=== PATIENT | female | born 1995 | race Caucasian/White ===

== ENCOUNTER → 2016-11-17 | Outpatient (CLI) | payer OTHER ==
--- NOTE | 2016-11-17 11:00 | XR ---
EXAMINATION TYPE: XR foot complete LT DATE OF EXAM: 11/17/2016 10:52 AM COMPARISON: NONE HISTORY: Pain TECHNIQUE: Three views are submitted. FINDINGS: The osseous structures are intact and the joint spaces are preserved. There is no acute fracture or dislocation. IMPRESSION: 1. No acute fracture or dislocation. If symptoms persist, follow-up exam in 7 to 10 days could be ob tained.
== END | disposition home or self-care (01) ==
LOC: RADXRMAIN 10:37
PROVIDERS: ATTEND Emergency Medicine
DX: S90.32XA Contusion of left foot, initial encounter (principal)

== ENCOUNTER 2017-03-18 23:24 | Emergency (ER) | payer BC, OTHER ==
[2017-03-18 23:42] VITALS: BP 122/74; TEMP 98
[2017-03-19] MEDS ORDERED: KETOROLAC 30 MG/ML 1 ML VIAL IM STA (00:36)
--- NOTE | 2017-03-19 00:39 | ED ---
General Adult HPI - General Chief complaint: Back Pain/Injury Stated complaint: back pain Time Seen by Provider: 03/19/17 00:19 Source: patient, RN notes reviewed Mode of arrival: ambulatory Limitations: no limitations - History of Present Illness Initial comments: Patient is a 21-year-old female since emergency room for evaluation of right- sided neck and upper back pain. Patient states she's had in neck pain for the past few months. Patient states the pain is on the right side of her neck and radiates into her shoulder. Patient states over the past few days been radiating into her right upper back. Patient states she feels tingling on the right side of her neck. Patient denies any worsening pain with movement of her neck or arm. 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 Patient states she was very light objects. Patient denies any spinal pain. Patient denies any recent fall, injury or trauma to her neck or back. Patient denies paresthesias. Patient denies headache or dizziness. Patient states been taking ibuprofen with no relief of symptoms. - Related Data Home Medications Medication Instructions Recorded Confirmed Vit No.124/Iron/Folic 1 each PO DAILY 02/09/15 08/21/15 [ Vitamin Tablet] Previous Rx's Medication Instructions Recorded Ibuprofen [Motrin] 600 mg PO Q6HR PRN #20 tab 03/19/17 Orphenadrine [Norflex] 100 mg PO Q12H PRN #12 tablet.er 03/19/17 Allergies Allergy/AdvReac Type Severity Reaction Status Date / Time No Known Allergies Allergy Verified 03/18/17 23:42 Review of Systems ROS Statement: Those systems with pertinent positive or pertinent negative responses have been documented in the HPI. ROS Other: All systems not noted in ROS Statement are negative. Past Medical History Additional Past Medical History / Comment(s): gallstone History of Any Multi-Drug Resistant Organisms: None Reported Past Surgical History: Cholecystectomy Past Anesthesia/Blood Transfusion Reactions: No Reported Reaction Past Psychological History: No Psychological Hx Reported Smoking Status: Current every day smoker Past Alcohol Use History: None Reported Past Drug Use History: None Reported - Past Family History Mother Family Medical History: No Reported History General Exam - General Exam Comments Initial Comments: Sitting in exam room, no acute distress. Limitations: no limitations General appearance: alert, in no apparent distress Head exam: Present: atraumatic, normocephalic, normal inspection Eye exam: Present: normal appearance ENT exam: Present: normal exam Neck exam: Present: normal inspection, tenderness (Tenderness on palpating over right trapezius muscle), full ROM Respiratory exam: Present: normal lung sounds bilaterally. Absent: respiratory distress Cardiovascular Exam: Present: regular rate, normal rhythm, normal heart sounds Extremities exam: Present: normal inspection Back exam: Present: normal inspection, paraspinal tenderness (Right sided thoracic paraspinal tenderness on palpation) Neurological exam: Present: alert, oriented X3, CN II-XII intact, normal gait Psychiatric exam: Present: normal affect, normal mood Skin exam: Present: warm, dry, intact, normal color. Absent: rash Course Vital Signs 03/18/17 03/19/17 23:40 02:17 Temperature 98.0 F Pulse Rate 71 68 Respiratory 18 16 Rate Blood Pressure 122/74 O2 Sat by Pulse 99 Oximetry Medical Decision Making - Medical Decision Making Patient is a 21-year-old female Presents to the emergency room for evaluation of right-sided neck pain. X-ray significant for straightening of the cervical spine. Patient's symptoms muscular, most likely muscle spasming. Patient will be sent home with muscle relaxers and ibuprofen. Patient has no neuro deficits. patient states she understands everything that was discussed with her. Return parameters discussed. - Radiology Data Radiology results: report reviewed, image reviewed Disposition Clinical Impression: Cervical muscle strain Disposition: HOME SELF-CARE Condition: Good Instructions: Cervical Strain (ED) Additional Instructions: Warm moist heat. Take medications as needed for pain. Please follow up with primary care provider in 1-2 days. If any new symptom arises or symptoms worsen , return to ER as soon as possible. Prescriptions: Ibuprofen [Motrin] 600 mg PO Q6HR PRN #20 tab PRN Reason: Pain Orphenadrine [Norflex] 100 mg PO Q12H PRN #12 tablet.er PRN Reason: Pain Referrals: Ugo Uriarte MD [Primary Care Provider] - 1-2 days Time of Disposition: 02:09
--- NOTE | 2017-03-19 01:56 | XR ---
INDICATION: Neck pain and back pain, no previous injury. COMPARISON: None. FINDING: AP, lateral, bilateral oblique, and odontoid views of the cervical spine are provided. There is straightening of the cervical spine without evidence of acute fracture or subluxation. Vertebral body heights are maintained. Odontoid view demonstrates normal atlantoaxial alignment. Oblique views demonstrate no evidence of significant foraminal narrowing. Disc spaces are preserved. There is no prevertebral soft tissue swelling. IMPRESSION: Straightening of the cervical spine. No evidence of acute osseous abnormality.
--- NOTE | 2017-03-19 01:57 | XR ---
INDICATION: Neck pain and back pain, no previous injury. COMPARISON: None. FINDING: AP, lateral, and swimmer's views of the thoracic spine are provided. There is no evidence of acute fracture or subluxation. Vertebral body height and alignment are maintained. There is minimal dextroconvex curvature of the mid and lower thoracic spine. IMPRESSION: Straightening of the cervical spine. No evidence of acute osseous abnormality.
[2017-03-19 02:18] VITALS: PULSE 68; RESP 16
== END 2017-03-19 02:17 | disposition home or self-care (01) ==
LOC: EC 23:24
DX: S16.1XXA Strain of muscle, fascia and tendon at neck level, initial encounter (principal); F17.200 Nicotine dependence, unspecified, uncomplicated; Z79.899 Other long term (current) drug therapy; X58.XXXA Exposure to other specified factors, initial encounter
CPT/HCPCS: 72072; 72050; 99283; 96372; J1885

== ENCOUNTER 2018-09-27 08:36 | Emergency (ER) | payer OTHER ==
[2018-09-27 08:40] VITALS: RESP 18; TEMP 98.3
[2018-09-27] MEDS ORDERED: KETOROLAC 30 MG/ML 1 ML VIAL IVP STA (08:56)
[2018-09-27] MEDS ORDERED: SODIUM CHLORIDE 0.9% 1,000 ML IV STA (08:56)
[2018-09-27] MEDS ORDERED: METOCLOPRAMIDE 5 MG/ML 2 ML VIAL IVP STA (08:56)
[2018-09-27] MEDS ORDERED: MECLIZINE 12.5 MG TAB PO STA (08:57)
--- NOTE | 2018-09-27 09:35 | ED ---
General Adult HPI - General Chief complaint: Headache Stated complaint: headache, left face and shoulder pain Time Seen by Provider: 09/27/18 08:46 Source: patient, RN notes reviewed Mode of arrival: ambulatory Limitations: no limitations - History of Present Illness Initial comments: 22-year-old female with a past medical history of cholecystectomy, depression presents to the emergency department for a chief complaint of dizziness x 6 hours. Patient states she got up to use the bathroom at about 2:30 AM this morning. Patient states that at that time she felt somewhat dizzy and the room is spinning. She states she felt nauseous. Patient states she is feeling tension in bilateral posterior shoulders and upper back. She states she has a sharp tingling feeling throughout these that was up the back of her neck and into the back of her head. Patient denies any significant headache or visual changes. No loss of consciousness. Patient has no other complaints at this time including shortness of breath, chest pain, abdominal pain, nausea or vomiting, headache, or visual changes. - Related Data Previous Rx's Medication Instructions Recorded Meclizine [Antivert] 25 mg PO TID PRN #10 tab 09/27/18 Allergies Allergy/AdvReac Type Severity Reaction Status Date / Time sumatriptan [From Imitrex] Allergy Vomiting Verified 09/27/18 08:41 Review of Systems ROS Statement: Those systems with pertinent positive or pertinent negative responses have been documented in the HPI. ROS Other: All systems not noted in ROS Statement are negative. Past Medical History Additional Past Medical History / Comment(s): gallstone History of Any Multi-Drug Resistant Organisms: None Reported Past Surgical History: Cholecystectomy Past Anesthesia/Blood Transfusion Reactions: No Reported Reaction Past Psychological History: Depression Smoking Status: Former smoker Past Alcohol Use History: None Reported Past Drug Use History: None Reported - Past Family History Mother Family Medical History: No Reported History General Exam Limitations: no limitations General appearance: alert, in no apparent distress Head exam: Present: atraumatic, normocephalic, normal inspection Eye exam: Present: normal appearance, PERRL, EOMI. Absent: scleral icterus, conjunctival injection, periorbital swelling ENT exam: Present: normal exam, normal oropharynx, mucous membranes moist, TM's normal bilaterally, normal external ear exam Neck exam: Present: normal inspection. Absent: tenderness, meningismus, lymphadenopathy Respiratory exam: Present: normal lung sounds bilaterally. Absent: respiratory distress, wheezes, rales, rhonchi, stridor Cardiovascular Exam: Present: regular rate, normal rhythm, normal heart sounds. Absent: systolic murmur, diastolic murmur, rubs, gallop, clicks GI/Abdominal exam: Present: soft, normal bowel sounds. Absent: distended, tenderness, guarding, rebound, rigid Neurological exam: Present: alert, oriented X3, CN II-XII intact Psychiatric exam: Present: normal affect, normal mood Course Vital Signs 09/27/18 09/27/18 08:38 10:00 Temperature 98.3 F Pulse Rate 75 71 Respiratory 18 18 Rate Blood Pressure 116/75 103/56 O2 Sat by Pulse 99 99 Oximetry Medical Decision Making - Medical Decision Making 22-year-old female presents to the emergency department for a chief complaint of dizziness. She also felt nauseous. Patient states she was feeling sharp tingling feelings in her upper shoulders and up the back of her neck into her head. No loss of consciousness. No signifcant headache. No vision changes. No fevers or chills at home. No neck stiffness. CBC CMP unremarkable. Urine negative. HCG negative. Vitals with any syncopal limits. Patient was given fluids, Antivert, and Toradol and is feeling much better. Patient states symptoms have completely resolved. Patient is resting comfortably. Patient is feeling well enough to go home. Discussed returning here patient is worsening symptoms. She agrees with this. - Lab Data Result diagrams: 09/27/18 09:00 09/27/18 09:00 Lab Results 09/27/18 09/27/18 09/27/18 Range/Units 09:00 09:00 09:00 WBC 7.7 (3.8-10.6) k/uL RBC 4.91 (3.80-5.40) m/uL Hgb 14.0 (11.4-16.0) gm/dL Hct 41.9 (34.0-46.0) % MCV 85.3 (80.0-100.0) fL MCH 28.4 (25.0-35.0) pg MCHC 33.3 (31.0-37.0) g/dL RDW 13.6 (11.5-15.5) % Plt Count 231 (150-450) k/uL Neutrophils % 67 % Lymphocytes % 25 % Monocytes % 4 % Eosinophils % 2 % Basophils % 0 % Neutrophils # 5.2 (1.3-7.7) k/uL Lymphocytes # 1.9 (1.0-4.8) k/uL Monocytes # 0.3 (0-1.0) k/uL Eosinophils # 0.1 (0-0.7) k/uL Basophils # 0.0 (0-0.2) k/uL Sodium 140 (137-145) mmol/L Potassium 4.7 (3.5-5.1) mmol/L Chloride 105 (98-107) mmol/L Carbon Dioxide 28 (22-30) mmol/L Anion Gap 7 mmol/L BUN 10 (7-17) mg/dL Creatinine 0.69 (0.52-1.04) mg/dL Est GFR (CKD-EPI)AfAm >90 (>60 ml/min/1.73 sqM) Est GFR (CKD-EPI)NonAf >90 (>60 ml/min/1.73 sqM) Glucose 87 (74-99) mg/dL Calcium 9.7 (8.4-10.2) mg/dL Total Bilirubin 1.6 H (0.2-1.3) mg/dL AST 16 (14-36) U/L ALT 23 (9-52) U/L Alkaline Phosphatase 60 (38-126) U/L Total Protein 6.7 (6.3-8.2) g/dL Albumin 4.5 (3.5-5.0) g/dL Urine Color Urine Appearance (Clear) Urine pH (5.0-8.0) Ur Specific [place] (1.001-1.035) Urine Protein (Negative) Urine Glucose (UA) (Negative) Urine Ketones (Negative) Urine Blood (Negative) Urine Nitrite (Negative) Urine Bilirubin (Negative) Urine Urobilinogen (<2.0) mg/dL Ur Leukocyte Esterase (Negative) Urine HCG, Qual Not Detected (Not Detectd) 09/27/18 Range/Units 09:00 WBC (3.8-10.6) k/uL RBC (3.80-5.40) m/uL Hgb (11.4-16.0) gm/dL Hct (34.0-46.0) % MCV (80.0-100.0) fL MCH (25.0-35.0) pg MCHC (31.0-37.0) g/dL RDW (11.5-15.5) % Plt Count (150-450) k/uL Neutrophils % % Lymphocytes % % Monocytes % % Eosinophils % % Basophils % % Neutrophils # (1.3-7.7) k/uL Lymphocytes # (1.0-4.8) k/uL Monocytes # (0-1.0) k/uL Eosinophils # (0-0.7) k/uL Basophils # (0-0.2) k/uL Sodium (137-145) mmol/L Potassium (3.5-5.1) mmol/L Chloride (98-107) mmol/L Carbon Dioxide (22-30) mmol/L Anion Gap mmol/L BUN (7-17) mg/dL Creatinine (0.52-1.04) mg/dL Est GFR (CKD-EPI)AfAm (>60 ml/min/1.73 sqM) Est GFR (CKD-EPI)NonAf (>60 ml/min/1.73 sqM) Glucose (74-99) mg/dL Calcium (8.4-10.2) mg/dL Total Bilirubin (0.2-1.3) mg/dL AST (14-36) U/L ALT (9-52) U/L Alkaline Phosphatase (38-126) U/L Total Protein (6.3-8.2) g/dL Albumin (3.5-5.0) g/dL Urine Color Yellow Urine Appearance Clear (Clear) Urine pH 6.0 (5.0-8.0) Ur Specific [place] 1.018 (1.001-1.035) Urine Protein Negative (Negative) Urine Glucose (UA) Negative (Negative) Urine Ketones Negative (Negative) Urine Blood Negative (Negative) Urine Nitrite Negative (Negative) Urine Bilirubin Negative (Negative) Urine Urobilinogen <2.0 (<2.0) mg/dL Ur Leukocyte Esterase Negative (Negative) Urine HCG, Qual (Not Detectd) Disposition Clinical Impression: Paresthesias, Dizziness Disposition: HOME SELF-CARE Condition: Good Instructions (If sedation given, give patient instructions): Acute Headache (ED ), Paresthesia (ED) Additional Instructions: Please take Antivert if needed for dizziness. Please follow-up with primary care in 1-2 days. Return here to the emergency department if you have any worsening symptoms. Prescriptions: Meclizine [Antivert] 25 mg PO TID PRN #10 tab PRN Reason: dizzy Is patient prescribed a controlled substance at d/c from ED?: No Referrals: Tre Goetz MD [Primary Care Provider] - 1-2 days Time of Disposition: 10:30
[2018-09-27 09:53] LABS: Appearance,Urine Clear (Clear); Bilirubin,Urine Negative (Negative); Blood,Urine Negative (Negative); Color,Urine Yellow; Glucose,Urine (UA) Negative (Negative); Ketones,Urine Negative (Negative); Leukocyte Esterase,Urine Negative (Negative); Nitrite,Urine Negative (Negative); Protein,Urine Negative (Negative); Specific Gravity,Urine 1.018 (1.001-1.035); Urobilinogen,Urine <2.0 mg/dL (<2.0)
[2018-09-27 09:54] LABS: Basophils % (A) 0 %; Eosinophils # (A) 0.1 k/uL (0-0.7); Eosinophils % (A) 2 %; HCT 41.9 % (34.0-46.0); Lymphocytes # (A) 1.9 k/uL (1.0-4.8); Lymphocytes % (A) 25 %; MCH 28.4 pg (25.0-35.0); MCHC 33.3 g/dL (31.0-37.0); MCV 85.3 fL (80.0-100.0); Mean Platelet Volume 7.4; Monocytes # (A) 0.3 k/uL (0-1.0); Monocytes % (A) 4 %; Neutrophils # (A) 5.2 k/uL (1.3-7.7); Neutrophils % (A) 67 %; Platelet Count 231 k/uL (150-450); RBC 4.91 m/uL (3.80-5.40); RDW 13.6 % (11.5-15.5); WBC 7.7 k/uL (3.8-10.6)
[2018-09-27 10:06] LABS: ALT 23 U/L (9-52); AST 16 U/L (14-36); Albumin 4.5 g/dL (3.5-5.0); Alkaline Phosphatase 60 U/L (38-126); Anion Gap 7 mmol/L; Blood Urea Nitrogen 10 mg/dL (7-17); Calcium 9.7 mg/dL (8.4-10.2); Carbon Dioxide 28 mmol/L (22-30); Chloride 105 mmol/L (98-107); Glucose 87 mg/dL (74-99); Potassium 4.7 mmol/L (3.5-5.1); Sodium 140 mmol/L (137-145); Total Bilirubin 1.6 mg/dL (0.2-1.3); Total Protein 6.7 g/dL (6.3-8.2)
[2018-09-27 10:17] VITALS: BP 103/56; PULSE 71
== END 2018-09-27 10:35 | disposition home or self-care (01) ==
LOC: EC 08:36
DX: R42 Dizziness and giddiness (principal); R20.2 Paresthesia of skin; R11.0 Nausea; Z87.891 Personal history of nicotine dependence; Z88.8 Allergy status to other drugs, medicaments and biological substances
CPT/HCPCS: 99284; 96374; 96375; 96361; 36415; 80053; 85025; 81003; 81025; J2765; J1885

== ENCOUNTER 2018-10-07 12:29 | Emergency (ER) | payer OTHER ==
[2018-10-07] MEDS ORDERED: SODIUM CHLORIDE 0.9% 1,000 ML IV STA (13:27)
--- NOTE | 2018-10-07 13:28 | ED ---
Chest Pain HPI - General Chief Complaint: Chest Pain Stated Complaint: Chest Pain Time Seen by Provider: 10/07/18 12:38 Source: patient, RN notes reviewed, old records reviewed Mode of arrival: ambulatory Limitations: no limitations - History of Present Illness Initial Comments: This is a 22-year-old female presents to ER with chest pain. Chest pain 3 weeks. Patient's pain is substernal worse with pressure worse with movement, does radiate to her back. She states she is occasional shortness of breath especially with activity. No recent travel history no known sick contacts. Patient was at work today states she wasn't feeling well to go blood pressure blood pressure was elevated heart rate was elevated. Patient denies drug or alcohol abuse. She does take medications for antidepressant MD Complaint: chest pain -: week(s) Onset: during rest, during exertion, awoke with symptoms Pain Location: substernal Pain Radiation: back Severity: mild Severity scale (1-10): 2 Quality: tightness, aching Consistency: intermittent Improves With: nothing Worsens With: nothing Other Symptoms: other (None) Treatments Prior to Arrival: none - Related Data Home Medications Medication Instructions Recorded Confirmed buPROPion SR [Wellbutrin Sr] 150 mg PO BID 10/07/18 10/07/18 traZODone HCL 50 mg PO HS PRN 10/07/18 10/07/18 Allergies Allergy/AdvReac Type Severity Reaction Status Date / Time sumatriptan [From Imitrex] Allergy Vomiting Verified 10/07/18 12:52 Review of Systems ROS Statement: Those systems with pertinent positive or pertinent negative responses have been documented in the HPI. ROS Other: All systems not noted in ROS Statement are negative. EKG Findings - EKG Comments: EKG Findings:: EKG shows NSR rate of 84 TN 146 QRS 102 QTc 413 Past Medical History Additional Past Medical History / Comment(s): gallstone History of Any Multi-Drug Resistant Organisms: None Reported Past Surgical History: Cholecystectomy Past Anesthesia/Blood Transfusion Reactions: No Reported Reaction Past Psychological History: Depression Smoking Status: Former smoker Past Alcohol Use History: None Reported Past Drug Use History: None Reported - Past Family History Mother Family Medical History: No Reported History General Exam Limitations: no limitations General appearance: alert, in no apparent distress Head exam: Present: atraumatic, normocephalic, normal inspection Eye exam: Present: normal appearance, PERRL, EOMI. Absent: scleral icterus, conjunctival injection, periorbital swelling ENT exam: Present: normal exam, mucous membranes moist Neck exam: Present: normal inspection. Absent: tenderness, meningismus, lymphadenopathy Respiratory exam: Present: normal lung sounds bilaterally. Absent: respiratory distress, wheezes, rales, rhonchi, stridor Cardiovascular Exam: Present: regular rate, normal rhythm, normal heart sounds. Absent: systolic murmur, diastolic murmur, rubs, gallop, clicks GI/Abdominal exam: Present: soft, normal bowel sounds. Absent: distended, tenderness, guarding, rebound, rigid Extremities exam: Present: normal inspection, full ROM, normal capillary refill. Absent: tenderness, pedal edema, joint swelling, calf tenderness Back exam: Present: normal inspection Neurological exam: Present: alert, oriented X3, CN II-XII intact Psychiatric exam: Present: normal affect, normal mood Skin exam: Present: warm, dry, intact, normal color. Absent: rash Course Vital Signs 10/07/18 10/07/18 12:34 13:52 Temperature 97.6 F Pulse Rate 90 76 Respiratory 17 18 Rate Blood Pressure 129/85 118/79 O2 Sat by Pulse 98 97 Oximetry - Reevaluation(s) Reevaluation #1: 10/07/18 15:09 Medical record is reviewed Reevaluation #2: 10/07/18 15:09 Patient remains a chest pain Chest Pain MDM - MDM 22 female the ER for evaluation. Patient presented with chest pain. Patient has normal EKG normal troponin and a CT which is negative for acute disease. Patient can be discharged home Disposition Clinical Impression: Chest pain, Atypical chest pain Disposition: HOME SELF-CARE Condition: Good Instructions (If sedation given, give patient instructions): Chest Pain (ED) Is patient prescribed a controlled substance at d/c from ED?: No Referrals: Tre Goetz MD [Primary Care Provider] - 1-2 days
--- NOTE | 2018-10-07 13:46 | XR ---
EXAMINATION TYPE: XR chest 2V DATE OF EXAM: 10/07/2018 COMPARISON: None INDICATION: Chest pain TECHNIQUE: Frontal and lateral views of the chest are obtained. FINDINGS: The heart size is normal. The pulmonary vasculature is normal. The lungs are clear. IMPRESSION: 1. No acute pulmonary process.
[2018-10-07 13:53] VITALS: RESP 18
[2018-10-07 14:08] LABS: Basophils % (A) 0 %; Eosinophils # (A) 0.1 k/uL (0-0.7); Eosinophils % (A) 2 %; HCT 39.8 % (34.0-46.0); HGB 14.1 gm/dL (11.4-16.0); Lymphocytes # (A) 2.1 k/uL (1.0-4.8); Lymphocytes % (A) 23 %; MCH 29.9 pg (25.0-35.0); MCHC 35.4 g/dL (31.0-37.0); MCV 84.6 fL (80.0-100.0); Mean Platelet Volume 6.3; Monocytes # (A) 0.3 k/uL (0-1.0); Monocytes % (A) 4 %; Neutrophils # (A) 6.4 k/uL (1.3-7.7); Neutrophils % (A) 70 %; Platelet Count 295 k/uL (150-450); RDW 13.1 % (11.5-15.5); WBC 9.1 k/uL (3.8-10.6)
[2018-10-07 14:19] LABS: ALT 33 U/L (9-52); AST 16 U/L (14-36); Albumin 4.5 g/dL (3.5-5.0); Alkaline Phosphatase 90 U/L (38-126); Anion Gap 7 mmol/L; Blood Urea Nitrogen 14 mg/dL (7-17); Calcium 9.8 mg/dL (8.4-10.2); Carbon Dioxide 23 mmol/L (22-30); Chloride 110 mmol/L (98-107); Glucose 86 mg/dL (74-99); Lipase 98 U/L (23-300); Magnesium 2.1 mg/dL (1.6-2.3); Potassium 4.1 mmol/L (3.5-5.1); Sodium 140 mmol/L (137-145); Total Bilirubin 1.6 mg/dL (0.2-1.3)
[2018-10-07 14:21] LABS: Partial Thromboplastin Time 26.6 sec (22.0-30.0); Prothrombin Time 10.4 sec (9.0-12.0)
[2018-10-07 14:30] LABS: Creatine Kinase 61 U/L (30-135)
--- NOTE | 2018-10-07 14:36 | CT ---
CT CHEST FOR PULMONARY EMBOLISM. EXAMINATION TYPE: CT angio chest DATE OF EXAM: 10/07/2018 INDICATION: Chest pain for [address] DLP: 235.2 mGycm, Automated exposure control for dose reduction was used. CONTRAST: Patient injected with 100 mL of Isovue 370. COMPARISON: 12/13/2011 TECHNIQUE: CT of the chest is performed on a spiral scan at 2 mm thick sections. Study is performed with intravenous contrast timed for evaluation for pulmonary embolism. This will limit additional po rtions of the evaluation. 3-D MIP images reconstructed by the technologist are reviewed on the compu ter in the coronal and sagittal planes. FINDINGS: No persistent filling defects are evident to suggest an acute pulmonary embolism. No mediastinal or hilar adenopathy enlarged by CT criteria is evident. The ascending aorta diameter at the level of the main pulmonary artery is cm. The main pulmonary artery diameter at the bifurcati on is cm. Lung windows are clear. Limited CT section through the upper abdomen are unremarkable. IMPRESSIONS: 1. No acute pulmonary embolism.
[2018-10-07 14:41] LABS: Creatine Kinase MB <0.2 ng/mL (0.0-2.4); Troponin I <0.012 ng/mL (0.000-0.034)
[2018-10-07 15:16] VITALS: BP 124/80; PULSE 71
[2018-10-07 15:29] VITALS: TEMP 97.8
== END 2018-10-07 15:26 | disposition home or self-care (01) ==
LOC: EC 12:29
DX: R07.89 Other chest pain (principal); R07.2 Precordial pain; F32.9 Major depressive disorder, single episode, unspecified; Z87.891 Personal history of nicotine dependence; Z79.899 Other long term (current) drug therapy; Z88.8 Allergy status to other drugs, medicaments and biological substances
CPT/HCPCS: 36415; 93005; 83880; 80053; 82550; 82553; 83690; 83735; 84484; 85025; 85610; 85730; 71046; 71275; 99285; 96360; Q9967

== ENCOUNTER → 2018-10-17 | Outpatient (CLI) | payer OTHER ==
--- NOTE | 2018-10-17 16:46 | ECHOS ---
STRESS ECHOCARDIOGRAM DATE OF SERVICE: 10/17/2018 INDICATIONS: Chest pain. MEDICATIONS: Wellbutrin, vitamin D. BASELINE HEART RATE: 75 BASELINE BLOOD PRESSURE: 115/66 MAXIMUM HEART RATE: 175 MAXIMUM BLOOD PRESSURE: 193/45 85% MPHR: 167 100% MPHR: 196 METS: 11.7 MAXIMUM STAGE REACHED: III TOTAL EXERCISE TIME: 10:14 CLINICAL INFORMATION: STRESS DATA: Pretesting physical examination showed a heart rate of 75, pressure of 115/65 mmHg. Baseline EKG showed sinus mechanism. The patient exercised on the treadmill according to Ildefonso protocol for a total of 10 minutes and achieved 11.7 METS with max heart rate of 175, which is about 89% of maximum predicted heart rate. Maximum blood pressure was 193/40 mmHg. Clinically the patient did not have any symptoms of chest pain or chest discomfort during the testing or on recovery, and the EKG did not show any significant ST or T-wave abnormalities concerning for ischemia. Echocardiogram images from parasternal long axis view, parasternal short axis view, apical 4-chamber and apical 2-chamber views were obtained as the baseline images, at the peak heart rate as well as on recovery. The echocardiogram images show good augmentation in the left ventricular systolic function without any evidence of wall motion abnormalities concerning for ischemia. CONCLUSION: 1. Excellent exercise tolerance. 2. Normal EKG in response to exercise. 3. Normal echocardiogram in response to exercise. 4. Essentially normal stress echocardiogram. MMODL / IJN: [id number] /
== END ==
LOC: RADNMMAIN 08:59
PROVIDERS: ATTEND Family Medicine
DX: R06.02 Shortness of breath (principal); R07.89 Other chest pain
CPT/HCPCS: 93351

== ENCOUNTER 2019-02-13 10:22 | Day surgery (SDC) | payer OTHER ==
[2019-02-11 12:13] VITALS: BMI 26.6
[~2019-02-13 10:22] MED LIST: LACTATED RINGERS 1,000 ML IV SCH; LIDOCAINE 1% 20 ML VIAL (10MG/ML) FOR IV START INTRADERMA PRN
[2019-02-13 10:52] VITALS: RESP 16
[2019-02-13] MEDS ORDERED: PROPOFOL 10 MG/ML 20 ML VIAL IV ONE (11:23)
[2019-02-13] MEDS ORDERED: MIDAZOLAM 2 MG/2 ML VIAL ONE (11:23)
[2019-02-13] MEDS ORDERED: fentaNYL (PF) 50 MCG/ML 2 ML AMP ONE (11:23)
--- NOTE | 2019-02-13 11:55 | P.PCN ---
Date of Procedure: 02/13/19 Description of Procedure: BRIEF HISTORY: 23-year-old female who presents for outpatient value with upper endoscopy. The patient denies any prior history of esophagogastroduodenoscopy. She reports frequent episodes of reflux and nausea. She reports intermittent episodes of vomiting as well as loose stool generally occurring after she eats. The patient is on PPI therapy or medicine for her reflux. She does report intermittently trying Pepto-Bismol with minimal relief. PROCEDURE PERFORMED: Esophagogastroduodenoscopy with biopsy. PREOPERATIVE DIAGNOSIS: GERD, nausea and vomiting. ESTIMATED BLOOD LOSS: Minimal. IV sedation per anesthesia. PROCEDURE: After informed consent was obtained, the patient was brought into the endoscopy unit. IV sedation was administered by Anesthesia under continuous monitoring. Initially the Olympus GIF-190 video endoscope was inserted into the mouth. Esophagus intubated without any difficulty. It was gradually advanced into the stomach and duodenum and carefully examined. The bulb and the second part of the duodenum appeared normal, with biopsies taken to rule out celiac sprue. The scope at this time was withdrawn to the stomach, adequately insufflated with air, and upon careful examination, mucosa of the antrum, body, cardia and the fundus appeared were significant for some mild scattered erythema in the antrum and body suggestive of mild gastritis with biopsies taken. The scope was then withdrawn into the esophagus. The GE junction was located at 36 cm from the incisors with biopsies taken. The esophagus appeared normal. There were no erosions or ulcerations seen and the patient tolerated the procedure well. IMPRESSION: 1. Mild gastritis antrum body, biopsied. 2. Duodenal biopsies. GE junction biopsies. RECOMMENDATIONS: The findings of this examination were discussed with the patient and her . Would recommend trial of Prilosec. Patient may benefit from follow-up with gastroenterology recommend she follows of if symptoms not improved with PPI. Await pathology from biopsies. Okay to resume diet.
[2019-02-13 12:10] VITALS: BP 126/71; PULSE 82
== END 2019-02-13 12:36 | disposition home or self-care (01) ==
LOC: ORWHC2ENDO 10:22
PROVIDERS: ATTEND Internal Medicine
DX: K29.50 Unspecified chronic gastritis without bleeding (principal); Z79.3 Long term (current) use of hormonal contraceptives; Z79.899 Other long term (current) drug therapy; Z88.8 Allergy status to other drugs, medicaments and biological substances; Z90.49 Acquired absence of other specified parts of digestive tract; Z87.891 Personal history of nicotine dependence
CPT/HCPCS: 81025; 88305; 43239; J2250; J3010; J2704

== ENCOUNTER → 2020-02-02 | Outpatient (CLI) | payer OTHER ==
[2020-02-02 11:42] LABS: Basophils % (A) 0 %; Eosinophils # (A) 0.1 k/uL (0-0.7); Eosinophils % (A) 1 %; HCT 44.7 % (34.0-46.0); HGB 14.5 gm/dL (11.4-16.0); Lymphocytes # (A) 2.1 k/uL (1.0-4.8); Lymphocytes % (A) 21 %; MCH 27.9 pg (25.0-35.0); MCHC 32.4 g/dL (31.0-37.0); MCV 86.3 fL (80.0-100.0); Mean Platelet Volume 7.9; Monocytes # (A) 0.4 k/uL (0-1.0); Monocytes % (A) 4 %; Neutrophils # (A) 7.3 k/uL (1.3-7.7); Neutrophils % (A) 72 %; Platelet Count 278 k/uL (150-450); RBC 5.18 m/uL (3.80-5.40); RDW 12.9 % (11.5-15.5); WBC 10.1 k/uL (3.8-10.6)
== END | disposition home or self-care (01) ==
LOC: LABPAT 10:29
PROVIDERS: ATTEND Obstetrics & Gynecology
DX: Z01.818 Encounter for other preprocedural examination (principal)
CPT/HCPCS: 36415; 85025

== ENCOUNTER → 2020-02-02 | Outpatient (CLI) | payer OTHER ==
--- NOTE | 2020-02-02 11:20 | XR ---
EXAMINATION TYPE: XR thoracic spine 2V DATE OF EXAM: 02/02/2020 CLINICAL HISTORY: Back pain. TECHNIQUE: Frontal, lateral, and swimmer's view of thoracic spine are obtained. COMPARISON: Thoracic spine x-ray March 19, 2017. FINDINGS: Thoracic spine show slight dextroconvex scoliotic curvature or positioning centered mid tho racic spine similar to prior without evidence of acute fracture or dislocation. Vertebral body heigh ts and disc space heights are preserved. Visualized ribs are unremarkable bilaterally. Cholecystect aura clips incidentally noted. IMPRESSION: As above.
--- NOTE | 2020-02-02 11:40 | XR ---
EXAMINATION TYPE: XR cervical spine 5 views comp, XR lumbosacral spine 5 views DATE OF EXAM: 02/02/2020 COMPARISON: None HISTORY: 24-year-old female R52, pain FINDINGS: Cervical spine: No predental space widening or prevertebral soft tissue swelling. Straightening of the normal cervica l lordosis. Alignment is maintained. Minimal facet degenerative spurring lower cervical spine. No sig nificant bony neuroforaminal narrowing on either side. Normal odontoid view. Lumbar spine: Cholecystectomy clips. 5 lumbar type vertebral bodies. Mild facet joint space narrowing within the l ower lumbar spine. No pars interarticularis defect. Vertebral body heights are preserved and alignmen t is maintained. Mild disc space narrowing thoracolumbar junction. IMPRESSION: 1. Cervical spine: Minimal early facet degenerative spurring lower cervical spine. Reversal of the no rmal cervical lordosis could be positional or due to muscle spasm. No acute osseous abnormality seen. 2. Lumbar spine: No vertebral compression collapse or malalignment. Mild degenerative disc disease at the thoracolumbar junction and mild facet joint space narrowing lower lumbar spine.
== END | disposition home or self-care (01) ==
LOC: RADXRMAIN 09:43
PROVIDERS: ATTEND Internal Medicine
DX: M48.02 Spinal stenosis, cervical region (principal); M47.812 Spondylosis without myelopathy or radiculopathy, cervical region; M41.84 Other forms of scoliosis, thoracic region; M51.36 Other intervertebral disc degeneration, lumbar region
CPT/HCPCS: 72050; 72070; 72110

== ENCOUNTER → 2020-02-09 | Day surgery (SDC) | payer OTHER ==
[2020-02-05 11:19] VITALS: BMI 29.7
--- NOTE | 2020-02-05 15:09 | HP ---
HISTORY AND PHYSICAL This is a 23-year-old white female, 4, para 4-0-0-4 who presents for laparoscopic tubal ligation with Filshie clips. In addition, she would like the Nexplanon onel in the left forearm removed. She is aware that there is a small, unlikely but possible chance of after tubal ligation, that could primarily be in the tube, an ectopic situation which can be life-threatening. She agrees to seeking care immediately if the signs and symptoms of or a positive test should occur. All other risks and benefits have been thoroughly discussed. PAST MEDICAL HISTORY: Significant for gestational diabetes in the past. PAST SURGICAL HISTORY: Negative. CURRENT MEDICATIONS: Nexplanon 68 mg subdermal implant in the left arm. ALLERGIES: None known. SOCIAL HISTORY: The patient has never been a smoker, she is , she denies alcohol or drug use. OBSTETRIC HISTORY: Significant for normal spontaneous vaginal deliveries of 4 female infants, all unremarkable. PHYSICAL EXAM: This is a pleasant white female who is 185 pounds, blood pressure is 120/70. The general physical examination is within normal limits. Chest is clear to auscultation in all cabello anteriorly and posteriorly. Cardiac exam reveals a regular rate and rhythm with no murmur, click, or rub. Breasts are symmetric to inspection with no axillary adenopathy, skin changes, nipple discharge, or discernible lesions or masses. HEENT examination is negative. Abdomen is soft and nontender, no organosplenomegaly, active bowel sounds. External genitalia are well estrogenized, no unusual discharge or odor. Cervix is multiparous, mobile, nontender, smooth. Uterus is small, midline, symmetric, midposition, and adnexa are negative bilaterally. Rectal exam reveals good tone, no hemorrhoids. IMPRESSION: Undesired fertility. Requesting permanent tubal sterilization. All risks and benefits thoroughly described, questions answered. The ACOG capitals ACOG pamphlet has been given and reviewed. We will proceed with proceed with laparoscopic tubal ligation with Filshie clips as discussed. MMODL / IJN: [id number] /
[~2020-02-09] MED LIST changes: +ACETAMINOPHEN IV (For NPO) 1,000 MG/100 ML VIAL ONE; +BUPIVACAINE (PF) 0.25% 30 ML VIAL SQ ONE; +DEXAMETHASONE SOD PHOSPHATE 10 MG/ML 1 ML VIAL IV ONE; +HYDROmorphone 0.5 MG/0.5 ML SYRINGE IVP PRN; +KETOROLAC 30 MG/ML 1 ML VIAL ONE; -LIDOCAINE 1% 20 ML VIAL (10MG/ML) FOR IV START INTRADERMA PRN; +LIDOCAINE 1% INJ 10MG/ML (20 ML MDV) ONE; +MIDAZOLAM 2 MG/2 ML VIAL ONE; +ONDANSETRON 4 MG/2 ML VIAL IVP ONE; +PROPOFOL 10 MG/ML 20 ML VIAL IV ONE; +Pre Op ABX Message 1 EACH MISC MISCELLANE ONE; +SCOPOLAMINE 1.5MG/72HR PATCH TRANSDERM ONE; +SUCCINYLCHOLINE CHLORIDE 100 MG/5 ML SYR IV ONE; +fentaNYL (PF) 50 MCG/ML 2 ML AMP ONE; +oxyCODONE-APAP 5-325MG 1 EACH TAB ONE; +oxyCODONE-APAP 5-325MG 1 EACH TAB PO ONE
--- NOTE | 2020-02-09 12:18 | P.OP ---
Date of Procedure: 02/09/20 Preoperative Diagnosis: Undesired fertility, Nexplanon left arm Postoperative Diagnosis: Same, normal-appearing tubes and ovaries bilaterally. No evidence of endometriosis or fibroids. Procedure(s) Performed: Laparoscopic tubal ligation with Filshie clips, removal nexplanon onel, left arm Anesthesia: MARINOA Surgeon: Catrina Stoll Estimated Blood Loss (ml): 15 IV fluids (ml): 400 Urine output (ml): 200 Pathology: none sent Condition: stable Disposition: PACU Description of Procedure: Patient is brought to the operating suite where a general anesthetic is administered without difficulty. She's placed in the dorsal lithotomy position. The appropriate timeout is performed to assure proper patient and procedural identification. Urine hCG is negative. The cervix, vagina, perineal body, and abdomen as well as left upper arm are all prepped and draped in usual sterile fashion. Bladder is drained for approximately 200 mL of clear yellow urine. Speculum is placed into the vagina, anterior lip of the cervix is grasped with an Allis clamp, large acorn is placed and attached to the Allis clamp, and the speculum is removed. Attention is now drawn to the abdominal wall. A small infraumbilical incision is made. The varies needle is placed, and the placement is checked with hanging drop technique. The abdomen is insufflated under low filling pressures of approximately 8 mmHg for a total of 3.5 L of CO2 gas. Veress needle is removed. Trocar is then placed and the placement is noted to be atraumatic. A second incision is made suprapubically, and under direct visualization a second trocar is placed, again atraumatic entry. Uterus is now anteverted and laterally positioned from below. The right fallopian tube is visualized in its entirety to the fimbriated end. A Filshie clip is placed in the isthmic portion of the tube with care to traverse the entire diameter of the tube into the mesal salpinx. The same procedure is carried out contralaterally on the left tube, again clip placed entirely through the isthmic portion into the mesal salpinx. Bilateral ovaries are inspected and noted to be normal. Fimbriated ends are also normal. No evidence of pelvic endometriosis or fibroids. The CO2 gas was allowed to diffuse. The trochars are removed under direct visualization. 4-0 undyed Monocryl is used in a subcuticular manner for skin closure. The incisions are injected with a total of 8 mL of quarter percent Marcaine without epinephrine to aid in analgesia. Instruments are removed from the vagina and the cervix is clean and dry. At this time the left upper arm is once again inspected. A marking pen is used to oleksandr the end of the onel. A scalpel is used and a small incision is made. Hemostat is then used to grasp the end of the onel and it is brought forth through the incision, inspected and noted to be fully intact. The same 4-0 undyed Monocryl is used for a single subcu cuticular stitch. Steri-Strips and Mastisol are applied to all the wounds. All sponge needle and enhancement co unts are correct at the end of the procedure. Patient is brought back to the recovery room in very good condition with stable vital signs. She will follow- up with me in the office in 2 weeks.
[2020-02-09 12:33] VITALS: TEMP 98.1
[2020-02-09 13:19] VITALS: RESP 17
[2020-02-09 13:32] VITALS: BP 116/70; PULSE 66
== END ==
LOC: OR 09:38
PROVIDERS: ATTEND Obstetrics & Gynecology
DX: Z30.2 Encounter for sterilization (principal); G43.909 Migraine, unspecified, not intractable, without status migrainosus; E66.9 Obesity, unspecified; Z79.899 Other long term (current) drug therapy; Z86.32 Personal history of gestational diabetes; Z68.30 Body mass index [BMI] 30.0-30.9, adult
CPT/HCPCS: 81025; 58671; 11982; J2250; J1100; J2405; J2001; J3010; J1885; J0131; J0330; J2704; J1170

== ENCOUNTER → 2025-02-04 | Outpatient (CLI) | payer OTHER ==
--- NOTE | 2025-02-04 10:24 | US ---
EXAMINATION TYPE: US abdomen complete DATE OF EXAM: 02/04/2025 COMPARISON: NONE CLINICAL INDICATION: Female, 29 years old with history of K57.90 DIVERITICULOSIS E16.2 HYPOGLYCEMIA E 88.819; TECHNIQUE: Grayscale and color Doppler imaging of the abdomen was performed. FINDINGS: EXAM MEASUREMENTS: Liver Length: 19.5 cm Gallbladder Wall: Surgically absent cm CBD: 0.5 cm, color Doppler imaging was utilized to isolate the common bile duct for measurement. Spleen: 11.1 cm Right Kidney: 9.8x4.2x5.2 cm Left Kidney: 11.0x4.8x5.2 cm TOUR AGENT NOTES: limited scan due to overlying bowel Pancreas: Tail obscured by overlying bowel gas Liver: Increased attenuation, decreased visualization of vessels suggestive of fatty infiltrate, dif ficult to penetrate Gallbladder: Surgically absent Evidence for sonographic Mcconnell's sign: No CBD: wnl Spleen: wnl Right Kidney: wnl, No hydronephrosis, calculi or masses seen Left Kidney: wnl, No hydronephrosis, calculi or masses seen Upper IVC: wnl Abd Aorta: wnl . IMPRESSION: 1. No evidence for acute process. 2. Hepatic steatosis. [facility], , 02/04/2025 10:21 AM
--- NOTE | 2025-02-04 10:27 | US ---
EXAMINATION TYPE: US transvaginal DATE OF EXAM: 02/04/2025 COMPARISON: Ultrasound 02/09/2015. CLINICAL INDICATION: Female, 29 years old with history of K57.90 DIVERITICULOSIS E16.2 HYPOGLYCEMIA E 88.819; PCOS TECHNIQUE: Transvaginal (TV). Transabdominal grayscale sonographic images of the pelvis were acquired. Transvaginal sonographic im ages were medically necessary to better assess the following anatomy: Doppler imaging: Color Doppler Images were obtained. FINDINGS: Date of LMP: 01/30/2025 EXAM MEASUREMENTS: Uterus: 9.1x3.6x4.8 cm Endometrial Stripe: 0.7 cm Right Ovary: 2.0x1.6x2.0 cm Left Ovary: 1.6x1.8x2.4 cm slightly limited due to overlying bowel 1. Uterus: Anteverted wnl CX: multiple calcifications seen within CX 2. Endometrium: wnl 3. Right Ovary: multiple follicles measuring up to 1.0x0.9cm, 4. Left Ovary: multiple follicles present 5. Bilateral Adnexa: wnl 6. Posterior cul-de-sac: wnl IMPRESSION: 1. No evidence for acute process. 2. Endometrium within normal limits for thickness. [facility], , 02/04/2025 10:25 AM
== END | disposition home or self-care (01) ==
LOC: RADUSWWP 08:49
PROVIDERS: ATTEND Family Medicine
DX: E88.819 Insulin resistance, unspecified (principal); E16.2 Hypoglycemia, unspecified; K76.0 Fatty (change of) liver, not elsewhere classified; K57.30 Diverticulosis of large intestine without perforation or abscess without bleeding
CPT/HCPCS: 76700; 76830